=== PATIENT | male | born 1980 | race Caucasian/White ===

== ENCOUNTER 2016-09-22 23:59 | Inpatient (IN) | payer BC ==
--- NOTE | ~2016-09-22 | CN ---
Consultation Report [facility] [address] [place]. [address] NAME: DON HAJI : 84 STATUS : ADM IN PAT#: [id number] AGE: 36 ADM/REG DATE : 09/23/16 MR#: [id number] REPORT SERV DATE: 09/23/16 DICTATED BY: PRISCILA HARRISON DATE: 09/23/16 REPORT STATUS : Draft TRANSCRIBED BY: MODL DATE: 09/23/16 DATE OF CONSULTATION: 09/23/2016 REASON FOR CONSULT: Evaluation of free air found on imaging. CHIEF COMPLAINT: Shortness of breath and abdominal pain. HISTORY OF PRESENT ILLNESS: This is a 36-year-old male with a recent history of melanoma and excision by Dr. Perez, who presented to the emergency department with a two-day history of abdominal pain. The patient states this pain began rather abruptly at 11 p.m. on Tuesday evening and has gradually worsened over time. He endorses fever at home and is associated with shortness of breath and cough without any emesis. He denies any hematemesis, melena, or hematochezia. The pain is located primarily in the epigastrium and right upper quadrant. His recent medical history is significant for excision of a large melanoma on his back in May of this year with an associated right inguinal lymph node dissection, true positive for metastatic melanoma. Additionally, he underwent a liver biopsy without any evidence of metastatic disease. This was roughly one month ago and he has been in his normal state of health since that time until his pain began. On admission to the emergency department, his temperature was found to be 99.9 with a tachycardia in the 120s. White blood cell count was 10.9 and he had a lactic acidemia at 2.7. CT scan of the chest, abdomen, and pelvis was performed and this was significant for a right middle lobe and right lower lobe pneumonia as well as some free air in the anterior abdominal wall below the umbilicus. He has an associated fluid collection from his lymph node dissection. On interview in the patient's room, he does still complain of difficulty breathing, mainly associated with abdominal pain. He is mildly distressed and states the pain medicine does help with his pain. He denies any nausea or bowel movements. General Surgery was consulted for evaluation and management of this free intraperitoneal air associated with abdominal pain. REVIEW OF SYSTEMS: A 12-point review of systems was performed and is otherwise negative except as per HPI. PAST MEDICAL HISTORY: Metastatic melanoma. PAST SURGICAL HISTORY: 1. Right back melanoma excision. 2. Liver biopsy. 3. Right inguinal lymph node dissection. ALLERGIES: SHELL FISH. HOME MEDICATIONS: Reviewed. SOCIAL HISTORY: The patient denies the use of any tobacco, alcohol, or illegal drugs. FAMILY HISTORY: The patient has no family history of melanoma or any other medical Consultation Report [address] [address] NAME: DON HAJI : [birth year] STATUS : ADM IN [facility]#: [id number] AGE: 36 ADM/REG DATE : 09/23/16 MR#: [id number] REPORT SERV DATE: 09/23/16 DICTATED BY: PRISCILA HARRISON DATE: 09/23/16 REPORT STATUS : Draft TRANSCRIBED BY: CRISTHIAN DATE: 09/23/16 comorbidities that he can think of. LABORATORY STUDIES: EKG obtained showed sinus tachycardia with a heart rate of 120. He did have a mild alkalosis with a CO2 of 21. PHYSICAL EXAMINATION: VITAL SIGNS: Temperature 98.2, blood pressure 158/88, heart rate 96, respirations 18, SpO2 95% on 4 L. GENERAL APPEARANCE: Patient is in mild distress. Complains of abdominal pain. He is accompanied by his mother. He is alert and oriented x3 and appears to be his stated age, 36 years old. HEAD, EYES, EARS, NOSE, THROAT: There is no scleral icterus. Extraocular muscles are grossly intact. There is no lesion. Oropharynx and mucous membranes are pink and moist. Hearing is grossly normal. No otorrhea or rhinorrhea. NECK: Examination of the neck reveals no cervical lymphadenopathy or thyromegaly. Trachea is midline. CHEST: Breath sounds diminished on the right inferior chest and the back. No wheezes. Respirations are nonlabored. CARDIAC: Reveals a regular heart rate with mild tachycardia in the 100s and no evidence of murmur. ABDOMEN: Soft, nondistended, however, the patient is tender on palpation in all quadrants primarily in the bilateral upper quadrants. There is no rebound or guarding. No masses are palpated, though exam was limited due to pain. LYMPHATICS: Inguinal region shows a well-healing right inguinal lymph node harvest scar with drain in place and serosanguineous output. No hernias obvious. EXTREMITIES: No deformities. Full range of motion x4. No edema. NEUROLOGIC: Shows no focal deficits. PSYCHIATRIC: Appropriate mood and affect with normal speech patterns. ASSESSMENT AND PLAN: This is a 36-year-old male with recent melanoma excision, who presents with two-day history of abdominal pain and CT findings of free intraperitoneal air. At this time, I agree with management of the patient's pneumonia with n.p.o. status and broad- spectrum antibiotics. On evaluation of the CT scan, there is no clear and obvious source for the air though the patient is roughly a month away from his liver biopsy and it would be unlikely this would be the cause. There does not appear to be any associated inflammation or fluid in the pelvis that would point to a perforated diverticulum and the duodenum does appear normal, though it is difficult to determine on the noncontrast scan. There is a small fat-containing umbilical hernia. At this time, we will continue to monitor the patient's vital signs and perform serial abdominal exam as well as serial lactates. His most recent prior to this report was 2.7. Dr. Harrison has seen the patient and has discussed with Dr. Perez. If the patient's clinical condition does not improve, he may require operative intervention with exploratory laparotomy to determine the etiology of the free intraperitoneal air. The patient was seen and discussed with Dr. Harrison. DICTATED BY: Jon Leyva MD Consultation Report [address] [address] NAME: DON HAJI : 84 STATUS : ADM IN [facility]#: [id number] AGE: 36 ADM/REG DATE : 09/23/16 MR#: [id number] REPORT SERV DATE: 09/23/16 DICTATED BY: PRISCILA HARRISON DATE: 09/23/16 REPORT STATUS : Draft TRANSCRIBED BY: MODL DATE: 09/23/16 ARMAAN/CRISTHIAN Priscila Harrison MD / [id number] CC: Fuad Perez MD
--- NOTE | ~2016-09-22 | DS ---
Discharge Summary [facility] [address] [place]. [address] NAME: DON HAJI : 84 STATUS : DIS IN PAT#: [id number] AGE: 36 ADM/REG DATE : 09/23/16 MR#: [id number] REPORT SERV DATE: 10/01/16 DICTATED BY: FUAD WOODY DATE: 09/29/16 REPORT STATUS : Draft TRANSCRIBED BY: CRISTHIAN DATE: 09/29/16 ADMISSION DATE: 09/23/2016 DISCHARGE DATE: 09/29/2016 DISCHARGE DIAGNOSES: 1. Sepsis syndrome. 2. Pneumonia. 3. Right midsized cellulitis. 4. Stage IIIA melanoma. 5. Pneumoperitoneum. 6. Hepatic steatosis. 7. Transaminitis. DISCHARGE CONDITION: Stable. CONSULTATION: General Surgery, Dr. Savage Harrison. SURGICAL INTERVENTION: None. HISTORY OF PRESENT ILLNESS: For detailed HPI, please make reference to Vicente Ibarra's dictation on 09/23/2016. In brief; this is a 36-year-old male with medical history of metastatic melanoma who presented to the emergency department of [facility] with complaints of shortness of breath, fever, and abdominal pain. In the ER, he was found to have a temperature of 99.9, pulse of 127, respiratory rate of 25, saturating 93% on room air, blood pressure of 160/72. Physical examination reviewed right middle and lower lobe expiratory rhonchi and crackles, also noted on the right lower extremity is a surgical drain in the right mid thigh. Also noted is a MERLENE drain in place in the right anterior thigh and right inguinal incision that appeared clean and dry with surrounding areas of erythema from the mid thigh up to the knee. A CT scan of the abdomen was done in the ER that shows pneumonia of the right middle and lower lobe with associated small right pleural effusion as well as hepatic steatosis and a few focal of free air in the anterior abdominal region. Also noted was a 9.7 cm subcutaneous fluid collection in the right inguinal region concerning for seroma and assessment of sepsis syndrome secondary to pneumonia, questionable pneumoperitoneum, and right lower extremity cellulitis was made in the ER. The patient was admitted to the Hospitalist Service. HOSPITAL COURSE: 1. Sepsis syndrome. Blood cultures were obtained. Sputum cultures obtained. The patient was started on broad-spectrum antibiotics. The patient's white blood cell gradually trended down. Shortness of breath subsequently improved and remained afebrile throughout the course of admission. Repeat chest x-ray shows significant improvement in the aeration of the right middle and lower lobe part of the lung. The patient was able to maintain his oxygen saturation over greater than 94% on room air. Blood cultures yielded no growth. Sputum cultures showed scanty white blood cell, poor quality. The patient was transitioned from IV broad-spectrum antibiotics to p.o. antibiotics prior to discharge. The patient tolerated p.o. medication without any Discharge Summary [facility] [address] [id number] [place]. [address] NAME: DON HAJI : 84 STATUS : DIS IN PAT#: [id number] AGE: 36 ADM/REG DATE : 09/23/16 MR#: [id number] REPORT SERV DATE: 10/01/16 DICTATED BY: FUAD WOODY DATE: 09/29/16 REPORT STATUS : Draft TRANSCRIBED BY: CRISTHIAN DATE: 09/29/16 nausea or vomiting or any complication. The patient was advised to follow up with primary care physician as an outpatient. 2. Pneumoperitoneum. The patient, on presentation, had complained of abdominal pain. CT of the abdomen showed free air in the peritoneum. General Surgery was consulted, and recommended conservative management. The patient was kept n.p.o., pain control was administered. The patient's abdominal pain subsequently improved. Etiology of free air in the anterior abdominal wall per General Surgery likely related to recent instrumentation. No evidence of acute abdomen prior to discharge. The patient was advised to continue follow up with his primary surgeon as an outpatient. 3. Right lower extremity cellulitis. On presentation, the patient had a MERLENE drain in the right anterior thigh. There was surrounding areas of erythema with initiation of antibiotics. There was progressive improvement in the right lower extremity pain and erythema. During the course of this admission, the patient's MERLENE drain spontaneously fell out from his leg. The wound care team was consulted, recommended daily dressing. An attempt was made to contact the patient's primary surgeon, Dr. Brandt, to see this patient during the course of this admission; however, Dr. Brandt has no admission privileges here at [facility]. It was noted that the cellulitis around this thigh had significantly improved. Prior to discharge, an appointment was made with Dr. Brandt 24 hours after discharge to follow up for possible further management of this right lower extremity cellulitis. 4. Right inguinal seroma. CT of the abdomen on presentation showed 9.6 subcutaneous fluid collection in the inguinal region concerning for seroma. No areas of erythema, warmth, or tenderness around the inguinal region noted. The patient was advised to continue follow up with Dr. Brandt for further management of this seroma. 5. History of metastatic melanoma. The patient was advised to continue follow up with primary oncology as an outpatient. 6. Elevated right hemidiaphragm noted on chest x-ray, etiology unclear. The patient was advised to continue follow up. 7. Hepatic steatosis with elevated liver enzymes. The patient's liver enzymes were slightly elevated but remained stable throughout the course of admission. The patient had a recent biopsy at an outside hospital that confirmed the presence of hepatic steatosis. The patient was advised to continue follow up with primary care physician. DISCHARGE MEDICATIONS: 1. Levofloxacin 750 mg p.o. daily. 2. Clindamycin 450 mg p.o. b.i.d. 3. Methadone 120 mg p.o. daily. 4. Mirtazapine 15 mg p.o. at bedtime. 5. mg p.o. b.i.d. DISCHARGE CONDITION: Stable. DISCHARGE FOLLOWUP: 1. To follow up with Dr. Michael Brandt on 09/30/2016 at 2 p.m., appointment is already made prior to discharge. 2. Followup with primary oncologist as an outpatient. 3. Followup with primary care physician within one to two weeks of discharge. Discharge Summary [address] [address] NAME: DON HAJI : 84 STATUS : DIS IN PAT#: [id number] AGE: 36 ADM/REG DATE : 09/23/16 MR#: [id number] REPORT SERV DATE: 10/01/16 DICTATED BY: FUAD WOODY DATE: 09/29/16 REPORT STATUS : Draft TRANSCRIBED BY: CRISTHIAN DATE: 09/29/16 DISCHARGE ACTIVITIES: As tolerated. Greater than 35 minutes was used to prepare this patient's discharge, reconcile medication, advise the patient on discharge plans and followup. DICTATED BY: Fuad Woody MD IOO/CRISTHIAN Fuad Woody MD / [id number] CC: MD Savage Anderson MD William Korn, M.D. Robert M Graham, MD AMAR SINGH, MD
--- NOTE | ~2016-09-22 | HP ---
History And Physical [facility] [address] [facility] [place]. [address] NAME: DON HAJI : 84 STATUS : ADM IN [facility]#: [id number] AGE: 36 ADM/REG DATE : 09/23/16 MR#: [id number] REPORT SERV DATE: 09/23/16 DICTATED BY: WILMA RIVERA DATE: 09/23/16 REPORT STATUS : Draft TRANSCRIBED BY: MODL DATE: 09/23/16 DATE OF ADMISSION: 09/23/2016 POINT OF ENTRY: [facility] Emergency Department. PRIMARY CARE PHYSICIAN: None at this time. PRIMARY ONCOLOGIST: Mendoza Hoffman M.D. CHIEF COMPLAINT: Shortness of breath and abdominal pain. HISTORY OF PRESENT ILLNESS: Mr. Haji is a 36-year-old gentleman with history of metastatic melanoma, who presents to the emergency department today with reports of a two- day history of shortness of breath, fevers, as well as abdominal pain. The patient was recently diagnosed with metastatic melanoma, underwent primary excision of the right lower back region in May 2016, at that time a right inguinal lymph node also was removed which was positive for metastatic melanoma. The patient recently underwent a liver biopsy as well as right inguinal lymph node chain resection which revealed evidence of fatty liver, but no evidence of metastatic disease on the liver or remaining lymph nodes in the inguinal region. The patient states it began about two days ago, he started develop troubles breathing with shortness of breath with some cough, but denies any sputum production, also reports some fevers as high as 100.2 degrees Fahrenheit. The patient also reports some abdominal pain primarily in the right upper quadrant and right flank region. Initial evaluation in the emergency department is notable for temperature of 99.9 degrees Fahrenheit, pulse is 127. Labs are notable for a white count of 10,900. He does have some evidence of transaminitis. Lactic acid was mildly elevated at 2.7, procalcitonin was 0.32. CT scan of the chest, abdomen, and pelvis confirmed a right middle lobe and right lower lobe pneumonia with a small right pleural effusion as well as a few foci of free air in the anterior abdominal intraperitoneal region around the umbilicus of uncertain significance as well as a 9.7 cm subcutaneous fluid collection in the right inguinal region likely postoperative seroma. General Surgery, Dr. Harrison, was contacted by the ER physician, who did not have any recommendations regarding management of the concerns for possible intraperitoneal foci of free air. The patient was subsequently admitted to the Hospitalist Service for further evaluation and management. REVIEW OF SYSTEMS: Comprehensive review of systems otherwise negative unless listed in history of present illness. PREVIOUS MEDICAL HISTORY: Metastatic melanoma. SURGICAL HISTORY: History And Physical [address] [address] NAME: DON HAJI : [birth year] STATUS : ADM IN PAT#: [id number] AGE: 36 ADM/REG DATE : 09/23/16 MR#: [id number] REPORT SERV DATE: 09/23/16 DICTATED BY: WILMA RIVERA DATE: 09/23/16 REPORT STATUS : Draft TRANSCRIBED BY: CRISTHIAN DATE: 09/23/16 1. Right flank melanoma excision. 2. Liver biopsy. 3. Right inguinal lymph node chain excision. ALLERGIES: TO SHELLFISH CAUSES SWELLING. HOME MEDICATIONS: Pending at the time of my dictation. SOCIAL HISTORY: Denies any tobacco, alcohol, or illicits. FAMILY HISTORY: Otherwise healthy. No known family history of melanoma. LABS AND IMAGIN. White count 10.9, hemoglobin 13.3, hematocrit is 38.5, and platelet counts 234. 2. Sodium is 139, potassium 3.9, chloride 102, carbon dioxide 27, BUN 7, creatinine 0.83, glucose is 88, calcium is 8.9, protein is 7.9, albumin is 3.1, bilirubin is 0.6, ALT 29, AST is 88, and alkaline phosphatase is 177. 3. Procalcitonin is 0.32. Lactic acid is 2.7. 4. EKG per my review shows sinus tachycardia with a heart rate of 120, no evidence of any acute ischemia. 5. ABG; pH is 7.39, pCO2 is 35, PO2 is 60, bicarb is 21, and saturating 90% on room air. 6. CT scan of the chest, abdomen, and pelvis. This is an overnight read from virtual Radiology. Formal Radiology read will need to be followed up. Shows a pneumonia of the right middle and right lower lobe with associated small right pleural effusion as well as hepatic steatosis and a few foci of free air in the anterior abdominal region inferior to the umbilicus as well as some area of subcutaneous free air in the supraumbilical region. Also shows a 9.7 cm subcutaneous fluid collection in the right inguinal region concerning for seroma. PHYSICAL EXAMINATION: VITAL SIGNS: Temperature is 99.9 degrees Fahrenheit, pulse is 127, respirations 25, saturating 93% on room air, and blood pressure 160/72. On recheck, blood pressure now 149/96, pulse of 119. GENERAL: The patient is awake and alert. He is in some moderate distress from shortness of breath, as well as abdominal pain. He is young male. Father is at bedside. Nontoxic appearing. HEENT: Atraumatic and normocephalic. Moist mucous membranes. Pupils are equal, round, reactive to light and accommodation. Extraocular eye movements intact. No scleral icterus. NECK: No jugular venous distention. No carotid bruits. CARDIAC: Tachycardic rate, regular rhythm. No murmurs or gallops. Normal S1, S2. LUNGS: Exam is limited by shortness of breath as well as pain on inspiration, but right lower and middle lobes do have some inspiratory rhonchi and crackles. ABDOMEN: Soft. He is tender to palpation over the right upper greater than right lower quadrant. Hypoactive bowel sounds throughout, but no rebound, guarding, or rigidity. EXTREMITIES: Warm and well perfused. No cyanosis, clubbing, or edema. The patient does have a MERLENE drain in place in the right inguinal anterior thigh region. The right inguinal incision appears to be clean, dry, and intact. History And Physical [address] [address] NAME: DON HAJI : 84 STATUS : ADM IN [facility]#: [id number] AGE: 36 ADM/REG DATE : 09/23/16 MR#: [id number] REPORT SERV DATE: 09/23/16 DICTATED BY: WILMA RIVERA DATE: 09/23/16 REPORT STATUS : Draft TRANSCRIBED BY: MODEdi DATE: 09/23/16 SKIN: Warm and dry. Again, previous postoperative incisions are clean, dry, and intact. PSYCH: Affect appropriate. NEURO: Alert and oriented x3. Cranial nerves 2 through 12 grossly intact. Speech is normal. Gait not assessed. ASSESSMENT AND PLAN: Mr. Haji is a 36-year-old gentleman with history of metastatic melanoma with recent lymph node surgical excision four weeks ago, who presents with a two- day history of fevers, shortness of breath, as well as right-sided flank and abdominal pain, and found to have evidence of pneumonia as well as sepsis. PROBLEM LIST: 1. Right middle lobe and right lower lobe pneumonia. 2. Sepsis. 3. Hypoxemia. 4. Intraperitoneal free air concerning for possible pneumoperitoneum. 5. Transaminitis. 6. History of metastatic melanoma. PLAN: 1. Right middle lobe and right lower lobe pneumonia. Given evidence of sepsis as well as recent hospitalization at [facility] for inguinal lymph node excision and liver biopsy we will empirically place the patient on broad-spectrum antibiotics of IV vancomycin and cefepime. Follow up blood cultures, sputum cultures, and wean antibiotics as tolerated. Provide supportive care with aggressive pulmonary toilet with DuoNeb, incentive spirometry, flutter valve, and mucolytics. 2. Sepsis. The patient meets criteria with tachypnea, tachycardia, mild leukocytosis as well as reports of fevers at home. Lactic acid is within normal limits, mildly elevated at 2.7, we will check a repeat after three hours. Procalcitonin is negative. Follow up blood cultures. Providing broad-spectrum antibiotics as well as IV fluid hydration. 3. Hypoxemia, pulmonary toilet with flutter valve, and incentive spirometry to mobilize secretions, wean as tolerated. 4. Concern for possible pneumoperitoneum with intraperitoneal free air. We will need to follow up on formal Radiology report of CT of the chest, abdomen, and pelvis. Followup Surgical consultation in the morning. Again Dr. Harrison was contacted by ER staff here and will see the patient in the morning. In the meantime, we will keep the patient nothing by mouth. Keep the patient on IV antibiotics. 5. Transaminitis likely secondary to fatty liver as documented on CT scan of abdomen and pelvis. We will continue to monitor. 6. Metastatic melanoma. Per Oncology, we will try to obtain records from Dr. Hoffman's office at [facility]. 7. DVT prophylaxis. Lovenox subcutaneous. CODE STATUS: The patient wished to be full code. History And Physical [address] [address] NAME: DON HAJI : 84 STATUS : ADM IN [facility]#: [id number] AGE: 36 ADM/REG DATE : 09/23/16 MR#: [id number] REPORT SERV DATE: 09/23/16 DICTATED BY: WILMA RIVERA DATE: 09/23/16 REPORT STATUS : Draft TRANSCRIBED BY: CRISTHIAN DATE: 09/23/16 ELAINA/CRISTHIAN Wilma Rivera MD / [id number] CC: Viet Srivastava Jr, MD Robert M Graham, MD
[2016-09-23 00:54] LABS: BASOPHILS 0.2 %; BASOPHILS ABSOLUTE 0.02 10/3/uL (0.0-0.16); EOSINOPHILS 0.6 %; EOSINOPHILS ABSOLUTE 0.06 10/3/uL (0.0-0.53); HEMATOCRIT 38.5 % (40.0-51.0); HEMOGLOBIN 13.3 g/dL (13.6-17.8); IMMATURE GRANULOCYTES 0.6 %; IMMATURE GRANULOCYTES ABSOLUTE 0.07 10/3/uL (0.0-0.11); LYMPHOCYTES ABSOLUTE 1.95 10/3/uL (0.67-4.30); MEAN CORPUS HGB CONC 34.5 g/dL (32.0-36.0); MEAN CORPUSCULAR HEMOGLOB 32.4 pg (26.0-34.0); MEAN CORPUSCULAR VOLUME 93.7 fL (80-100); MEAN PLATELET VOLUME 10.1 fL (9.2-13.0); MONOCYTES 14.2 %; MONOCYTES ABSOLUTE 1.54 10/3/uL (0.21-1.20); NEUTROPHILS 66.4 %; NEUTROPHILS ABSOLUTE 7.21 10/3/uL (2.02-8.40); PLATELET COUNT 234 10/3/uL (150-400); RBC DISTRIBUTION WIDTH 12.6 % (12.0-16.0); RED CELL COUNT 4.11 10/6/uL (4.7-6.1); WHITE BLOOD CELLS 10.9 10/3/uL (4.5-10.5)
[2016-09-23 00:59] LABS: MANUAL DIFF NO %
[2016-09-23 01:10] LABS: A/G RATIO 0.6 (0.7-1.9); ALBUMIN 3.1 G/DL (3.5-5.0); ALKALINE PHOSPHATASE 177 U/L (45-117); BUN (BLOOD UREA NITROGEN) 7 MG/DL (6-23); CALCIUM, SERUM 8.9 MG/DL (8.5-10.4); CHLORIDE, SERUM 102 MMOL/L (96-112); CO2 (CARBON DIOXIDE) 27 MMOL/L (24-34); CREATININE 0.83 MG/DL (0.70-1.30); GFR AFRICAN AMERICAN 133 ML/MIN (>=60); GFR NON AFRICAN AMERICAN 115 ML/MIN (>=60); GLOBULIN 4.8 G/DL (2.5-4.1); GLUCOSE, SERUM 88 MG/DL (60-99); POTASSIUM, SERUM 3.9 MMOL/L (3.5-5.3); SGOT(AST) 88 U/L (5-40); SGPT(ALT) 169 U/L (5-65); SODIUM, SERUM 139 MMOL/L (135-148); TOTAL BILIRUBIN 0.6 MG/DL (0-1.2); TOTAL PROTEIN 7.9 G/DL (6.0-8.5)
[2016-09-23 01:13] LABS: LACTATE 2.7 MMOL/L (0.3-2.4)
[2016-09-23 01:40] LABS: PROCALCITONIN 0.32 ng/mL (<0.5)
[2016-09-23 01:51] LABS: ALLENS TEST Pos; BE (BASE EXCESS) -3.6 MEQ/L (0 +/- 2.5); CARBOXYHEMOGLOBIN 1.6 % (0-3); HCO3 (ACTUAL BICARBONATE) 20.7 MEQ/L (23-27); HEMOBLOGIN CONTENT 12.9 G/DL (14-18); INSTRUMENT SERIAL # 8087; METHEMOGLOBIN 0.2 % (0-3); OPERATOR ID 33449; PCO2 (CO2 TENSION) 35 MMHG (35-45); PO2 (O2 TENSION) 60 MMHG (79-93); SAMPLE Arterial; pH 7.39 (7.37-7.43)
[2016-09-23] MEDS ORDERED: URSO FORTE500 MG PO (03:01)
[2016-09-23] MEDS ORDERED: REM15 PO (03:02)
[2016-09-23] MEDS ORDERED: METHADONE 120 MG PO (03:03)
[2016-09-23 04:27] LABS: ASCORBIC ACID (UR NOT ORDER) NEG (NEG); BILIRUBIN, URINE NEGATIVE (NEG); ER URINALYSIS TAT 0 Hrs 00 Mins; KETONE, URINE TRACE MG/DL (NEG); LEUKOCYTE ESTERASE(NOT OR NEG (NEG); NITRITE (URINE) NEG (NEG); WBC (NOT ORDERED) (RFLEX) 1 (0-5)
[2016-09-23 09:29] LABS: FREE T4 1.07 NG/DL (0.76-1.46); ULTRASENSITIVE TSH 1.28 MCIU/ML (0.358-3.740)
[2016-09-23] MEDS ORDERED: DOLOPHINE10 MG PO (09:38)
[2016-09-23 12:04] LABS: BUN (BLOOD UREA NITROGEN) 8 MG/DL (6-23); CALCIUM, SERUM 7.9 MG/DL (8.5-10.4); CHLORIDE, SERUM 107 MMOL/L (96-112); CO2 (CARBON DIOXIDE) 26 MMOL/L (24-34); CPK 84 U/L (0-200); CREATININE 0.74 MG/DL (0.70-1.30); GFR AFRICAN AMERICAN 139 ML/MIN (>=60); GFR NON AFRICAN AMERICAN 120 ML/MIN (>=60); GLUCOSE, SERUM 122 MG/DL (60-99); POTASSIUM, SERUM 4.5 MMOL/L (3.5-5.3); SODIUM, SERUM 142 MMOL/L (135-148)
[2016-09-23 12:18] LABS: ASCORBIC ACID (UR NOT ORDER) NEG (NEG); BILIRUBIN, URINE NEGATIVE (NEG); KETONE, URINE NEGATIVE (NEG); LEUKOCYTE ESTERASE(NOT OR NEG (NEG); WBC (NOT ORDERED) (RFLEX) 1 (0-5)
[2016-09-23 13:56] LABS: BASOPHILS 0.1 %; BASOPHILS ABSOLUTE 0.01 10/3/uL (0.0-0.16); EOSINOPHILS 0.1 %; EOSINOPHILS ABSOLUTE 0.01 10/3/uL (0.0-0.53); HEMATOCRIT 31.9 % (40.0-51.0); HEMOGLOBIN 10.8 g/dL (13.6-17.8); IMMATURE GRANULOCYTES 0.8 %; IMMATURE GRANULOCYTES ABSOLUTE 0.07 10/3/uL (0.0-0.11); LYMPHOCYTES 11.7 %; LYMPHOCYTES ABSOLUTE 1.08 10/3/uL (0.67-4.30); MANUAL DIFF NO %; MEAN CORPUS HGB CONC 33.9 g/dL (32.0-36.0); MEAN CORPUSCULAR HEMOGLOB 31.8 pg (26.0-34.0); MEAN CORPUSCULAR VOLUME 93.8 fL (80-100); MEAN PLATELET VOLUME 10.3 fL (9.2-13.0); MONOCYTES 12.2 %; MONOCYTES ABSOLUTE 1.13 10/3/uL (0.21-1.20); NEUTROPHILS 75.1 %; NEUTROPHILS ABSOLUTE 6.96 10/3/uL (2.02-8.40); PLATELET COUNT 225 10/3/uL (150-400); RBC DISTRIBUTION WIDTH 13.1 % (12.0-16.0); WHITE BLOOD CELLS 9.3 10/3/uL (4.5-10.5)
[2016-09-23 14:49] LABS: PROCALCITONIN 0.38 ng/mL (<0.5)
[2016-09-24 09:07] LABS: BASOPHILS 0.1 %; BASOPHILS ABSOLUTE 0.01 10/3/uL (0.0-0.16); EOSINOPHILS 0.8 %; EOSINOPHILS ABSOLUTE 0.06 10/3/uL (0.0-0.53); HEMOGLOBIN 12.7 g/dL (13.6-17.8); IMMATURE GRANULOCYTES 0.4 %; IMMATURE GRANULOCYTES ABSOLUTE 0.03 10/3/uL (0.0-0.11); LYMPHOCYTES 14.1 %; MEAN CORPUS HGB CONC 33.4 g/dL (32.0-36.0); MEAN CORPUSCULAR HEMOGLOB 31.6 pg (26.0-34.0); MEAN CORPUSCULAR VOLUME 94.5 fL (80-100); MEAN PLATELET VOLUME 9.5 fL (9.2-13.0); MONOCYTES 10.8 %; MONOCYTES ABSOLUTE 0.77 10/3/uL (0.21-1.20); NEUTROPHILS 73.8 %; NEUTROPHILS ABSOLUTE 5.23 10/3/uL (2.02-8.40); PLATELET COUNT 213 10/3/uL (150-400); RBC DISTRIBUTION WIDTH 13.1 % (12.0-16.0); RED CELL COUNT 4.02 10/6/uL (4.7-6.1); WHITE BLOOD CELLS 7.1 10/3/uL (4.5-10.5)
[2016-09-24 09:10] LABS: MANUAL DIFF NO %
[2016-09-24 09:14] LABS: INTERNATIONAL NORMAL RATI 1.2 UNITS (-); PARTIAL THROMBO TIME 26.1 SEC (22.5-37.2); PROTIME (NOT ORD) 14.9 SEC (12.0-14.5)
[2016-09-24 09:22] LABS: BUN (BLOOD UREA NITROGEN) 8 MG/DL (6-23); CHLORIDE, SERUM 105 MMOL/L (96-112); CO2 (CARBON DIOXIDE) 30 MMOL/L (24-34); GFR AFRICAN AMERICAN 143 ML/MIN (>=60); GFR NON AFRICAN AMERICAN 123 ML/MIN (>=60); POTASSIUM, SERUM 3.8 MMOL/L (3.5-5.3); SODIUM, SERUM 141 MMOL/L (135-148)
[2016-09-24 09:23] LABS: CALCIUM, SERUM 9.2 MG/DL (8.5-10.4); GLUCOSE, SERUM 92 MG/DL (60-99)
[2016-09-25 07:48] LABS: BASOPHILS 0.2 %; BASOPHILS ABSOLUTE 0.01 10/3/uL (0.0-0.16); EOSINOPHILS 2.1 %; EOSINOPHILS ABSOLUTE 0.12 10/3/uL (0.0-0.53); HEMOGLOBIN 11.2 g/dL (13.6-17.8); IMMATURE GRANULOCYTES 0.9 %; IMMATURE GRANULOCYTES ABSOLUTE 0.05 10/3/uL (0.0-0.11); LYMPHOCYTES 15.4 %; LYMPHOCYTES ABSOLUTE 0.88 10/3/uL (0.67-4.30); MEAN CORPUS HGB CONC 33.3 g/dL (32.0-36.0); MEAN CORPUSCULAR HEMOGLOB 31.6 pg (26.0-34.0); MEAN CORPUSCULAR VOLUME 94.9 fL (80-100); MEAN PLATELET VOLUME 9.7 fL (9.2-13.0); MONOCYTES 14.7 %; MONOCYTES ABSOLUTE 0.84 10/3/uL (0.21-1.20); NEUTROPHILS 66.7 %; NEUTROPHILS ABSOLUTE 3.82 10/3/uL (2.02-8.40); PLATELET COUNT 224 10/3/uL (150-400); RBC DISTRIBUTION WIDTH 12.8 % (12.0-16.0); RED CELL COUNT 3.54 10/6/uL (4.7-6.1); WHITE BLOOD CELLS 5.7 10/3/uL (4.5-10.5)
[2016-09-25 07:52] LABS: HEMATOCRIT 33.6 % (40.0-51.0); MANUAL DIFF NO %
[2016-09-25 08:06] LABS: ALBUMIN 2.5 G/DL (3.5-5.0); BUN (BLOOD UREA NITROGEN) 7 MG/DL (6-23); CALCIUM, SERUM 8.9 MG/DL (8.5-10.4); CHLORIDE, SERUM 105 MMOL/L (96-112); CO2 (CARBON DIOXIDE) 27 MMOL/L (24-34); CREATININE 0.54 MG/DL (0.70-1.30); GFR AFRICAN AMERICAN 159 ML/MIN (>=60); GFR NON AFRICAN AMERICAN 137 ML/MIN (>=60); GLUCOSE, SERUM 88 MG/DL (60-99); PHOSPHORUS, SERUM 3.6 MG/DL (2.5-4.5); POTASSIUM, SERUM 3.8 MMOL/L (3.5-5.3); SODIUM, SERUM 141 MMOL/L (135-148)
[2016-09-26 07:14] LABS: BASOPHILS 0.3 %; BASOPHILS ABSOLUTE 0.02 10/3/uL (0.0-0.16); EOSINOPHILS 2.7 %; EOSINOPHILS ABSOLUTE 0.17 10/3/uL (0.0-0.53); HEMATOCRIT 35.5 % (40.0-51.0); HEMOGLOBIN 12.2 g/dL (13.6-17.8); IMMATURE GRANULOCYTES 1.7 %; IMMATURE GRANULOCYTES ABSOLUTE 0.11 10/3/uL (0.0-0.11); LYMPHOCYTES 17.5 %; LYMPHOCYTES ABSOLUTE 1.11 10/3/uL (0.67-4.30); MEAN CORPUS HGB CONC 34.4 g/dL (32.0-36.0); MEAN CORPUSCULAR HEMOGLOB 31.7 pg (26.0-34.0); MEAN CORPUSCULAR VOLUME 92.2 fL (80-100); MEAN PLATELET VOLUME 9.5 fL (9.2-13.0); MONOCYTES 14.7 %; MONOCYTES ABSOLUTE 0.93 10/3/uL (0.21-1.20); NEUTROPHILS 63.1 %; NEUTROPHILS ABSOLUTE 3.99 10/3/uL (2.02-8.40); PLATELET COUNT 214 10/3/uL (150-400); RED CELL COUNT 3.85 10/6/uL (4.7-6.1); WHITE BLOOD CELLS 6.3 10/3/uL (4.5-10.5)
[2016-09-26 07:16] LABS: MANUAL DIFF NO %
[2016-09-26 07:26] LABS: BUN (BLOOD UREA NITROGEN) 8 MG/DL (6-23); CALCIUM, SERUM 8.7 MG/DL (8.5-10.4); CHLORIDE, SERUM 107 MMOL/L (96-112); CO2 (CARBON DIOXIDE) 29 MMOL/L (24-34); CREATININE 0.61 MG/DL (0.70-1.30); GFR AFRICAN AMERICAN 151 ML/MIN (>=60); GFR NON AFRICAN AMERICAN 130 ML/MIN (>=60); GLUCOSE, SERUM 88 MG/DL (60-99); PHOSPHORUS, SERUM 3.6 MG/DL (2.5-4.5); POTASSIUM, SERUM 3.9 MMOL/L (3.5-5.3); SODIUM, SERUM 140 MMOL/L (135-148)
[2016-09-26 15:12] LABS: ALKALINE PHOSPHATASE 122 U/L (45-117); DIRECT BILIRUBIN 0.1 MG/DL (0.0-0.4); SGOT(AST) 41 U/L (5-40); SGPT(ALT) 84 U/L (5-65)
[2016-09-26 15:23] LABS: ALBUMIN 2.7 G/DL (3.5-5.0); INDIRECT BILIRUBIN(NOT ORDER) 0.3 MG/DL (0.1-0.9); TOTAL BILIRUBIN 0.4 MG/DL (0-1.2); TOTAL PROTEIN 6.7 G/DL (6.0-8.5)
[2016-09-27 07:19] LABS: BASOPHILS 0.4 %; BASOPHILS ABSOLUTE 0.03 10/3/uL (0.0-0.16); EOSINOPHILS 2.2 %; EOSINOPHILS ABSOLUTE 0.18 10/3/uL (0.0-0.53); HEMATOCRIT 35.6 % (40.0-51.0); HEMOGLOBIN 12.1 g/dL (13.6-17.8); IMMATURE GRANULOCYTES 3.1 %; IMMATURE GRANULOCYTES ABSOLUTE 0.25 10/3/uL (0.0-0.11); LYMPHOCYTES 16.3 %; LYMPHOCYTES ABSOLUTE 1.31 10/3/uL (0.67-4.30); MANUAL DIFF NO %; MEAN CORPUSCULAR HEMOGLOB 31.5 pg (26.0-34.0); MEAN CORPUSCULAR VOLUME 92.7 fL (80-100); MEAN PLATELET VOLUME 9.5 fL (9.2-13.0); MONOCYTES 10.8 %; MONOCYTES ABSOLUTE 0.87 10/3/uL (0.21-1.20); NEUTROPHILS 67.2 %; NEUTROPHILS ABSOLUTE 5.41 10/3/uL (2.02-8.40); PLATELET COUNT 271 10/3/uL (150-400); RBC DISTRIBUTION WIDTH 12.7 % (12.0-16.0); RED CELL COUNT 3.84 10/6/uL (4.7-6.1); WHITE BLOOD CELLS 8.1 10/3/uL (4.5-10.5)
[2016-09-27 07:34] LABS: BUN (BLOOD UREA NITROGEN) 10 MG/DL (6-23); CHLORIDE, SERUM 111 MMOL/L (96-112); CO2 (CARBON DIOXIDE) 26 MMOL/L (24-34); CREATININE 0.63 MG/DL (0.70-1.30); GFR AFRICAN AMERICAN 149 ML/MIN (>=60); GFR NON AFRICAN AMERICAN 129 ML/MIN (>=60); GLUCOSE, SERUM 98 MG/DL (60-99); PHOSPHORUS, SERUM 2.8 MG/DL (2.5-4.5); POTASSIUM, SERUM 3.6 MMOL/L (3.5-5.3); SODIUM, SERUM 134 MMOL/L (135-148)
[2016-09-28 06:00] LABS: BUN (BLOOD UREA NITROGEN) 11 MG/DL (6-23); CALCIUM, SERUM 8.4 MG/DL (8.5-10.4); CHLORIDE, SERUM 108 MMOL/L (96-112); CO2 (CARBON DIOXIDE) 22 MMOL/L (24-34); CREATININE 0.64 MG/DL (0.70-1.30); GFR AFRICAN AMERICAN 148 ML/MIN (>=60); GFR NON AFRICAN AMERICAN 128 ML/MIN (>=60); PHOSPHORUS, SERUM 2.9 MG/DL (2.5-4.5); SODIUM, SERUM 140 MMOL/L (135-148)
[2016-09-28 06:02] LABS: GLUCOSE, SERUM 131 MG/DL (60-99); POTASSIUM, SERUM 3.8 MMOL/L (3.5-5.3)
[2016-09-28 06:27] LABS: HEMATOCRIT 37.4 % (40.0-51.0); HEMOGLOBIN 12.6 g/dL (13.6-17.8); MEAN CORPUS HGB CONC 33.7 g/dL (32.0-36.0); MEAN CORPUSCULAR HEMOGLOB 31.3 pg (26.0-34.0); MEAN CORPUSCULAR VOLUME 92.8 fL (80-100); MEAN PLATELET VOLUME 9.9 fL (9.2-13.0); PLATELET COUNT 240 10/3/uL (150-400); RBC DISTRIBUTION WIDTH 12.9 % (12.0-16.0); RED CELL COUNT 4.03 10/6/uL (4.7-6.1); WHITE BLOOD CELLS 6.8 10/3/uL (4.5-10.5)
[2016-09-28 06:29] LABS: MANUAL DIFF YES %
[2016-09-28 06:55] LABS: BAND NEUTROPHILS 3 %; EOSINOPHILS 4 %; EOSINOPHILS ABSOLUTE (CALC) 0.27 10/3/uL (0.0-0.53); IMMATURE GRANS ABSOLUTE (CALC) 0.27 10/3/uL (0.0-0.11); LYMPHOCYTES 20 %; LYMPHOCYTES ABSOLUTE (CALC) 1.36 10/3/uL (0.67-4.30); METAMYELOCYTES 3 %; MONOCYTES 8 %; MONOCYTES ABSOLUTE (CALC) 0.54 10/3/uL (0.21-1.20); MYELOCYTES 1 %; NEUTROPHILS ABSOLUTE (CALC) 4.35 10/3/uL (2.02-8.40); PLATELET ESTIMATE ADQ (ADEQUATE); SEGMENTED NEUTROPHIL (0) 61 %; TOTAL NUCLEATED CELLS 100
[2016-09-28 06:56] LABS: RBC MORPHOLOGY NORM (NORMAL)
[2016-09-28 10:20] LABS: HEPATITIS B SURFACE ANTIGEN NON-REACTIVE (NON-REACT)
[2016-09-28 10:43] LABS: HEP A ANTIBODY IGM NON-REACTIVE (NON-REACT)
[2016-09-29 05:53] LABS: BASOPHILS 0.4 %; BASOPHILS ABSOLUTE 0.03 10/3/uL (0.0-0.16); EOSINOPHILS 3.9 %; EOSINOPHILS ABSOLUTE 0.28 10/3/uL (0.0-0.53); HEMATOCRIT 37.7 % (40.0-51.0); IMMATURE GRANULOCYTES 4.5 %; IMMATURE GRANULOCYTES ABSOLUTE 0.32 10/3/uL (0.0-0.11); LYMPHOCYTES 17.9 %; LYMPHOCYTES ABSOLUTE 1.28 10/3/uL (0.67-4.30); MEAN CORPUS HGB CONC 34.5 g/dL (32.0-36.0); MEAN CORPUSCULAR HEMOGLOB 31.6 pg (26.0-34.0); MEAN CORPUSCULAR VOLUME 91.7 fL (80-100); MEAN PLATELET VOLUME 9.8 fL (9.2-13.0); MONOCYTES ABSOLUTE 0.93 10/3/uL (0.21-1.20); NEUTROPHILS 60.3 %; PLATELET COUNT 270 10/3/uL (150-400); RBC DISTRIBUTION WIDTH 12.4 % (12.0-16.0); RED CELL COUNT 4.11 10/6/uL (4.7-6.1); WHITE BLOOD CELLS 7.1 10/3/uL (4.5-10.5)
[2016-09-29 05:54] LABS: MANUAL DIFF NO %
[2016-09-29 06:09] LABS: BUN (BLOOD UREA NITROGEN) 10 MG/DL (6-23); CALCIUM, SERUM 8.5 MG/DL (8.5-10.4); CHLORIDE, SERUM 106 MMOL/L (96-112); CO2 (CARBON DIOXIDE) 24 MMOL/L (24-34); CREATININE 0.61 MG/DL (0.70-1.30); GFR AFRICAN AMERICAN 151 ML/MIN (>=60); GFR NON AFRICAN AMERICAN 130 ML/MIN (>=60); GLUCOSE, SERUM 98 MG/DL (60-99); PHOSPHORUS, SERUM 3.1 MG/DL (2.5-4.5); POTASSIUM, SERUM 3.4 MMOL/L (3.5-5.3); SODIUM, SERUM 139 MMOL/L (135-148)
[2016-09-29 07:54] LABS: HEPATITIS B CORE AB IGM NON-REACTIVE (NON-REAC); HEPATITIS C ANTIBODY NON-REACTIVE (NON-REACT)
[2016-09-29] MEDS ORDERED: LEVAQUIN750 MG PO (08:52)
[2016-09-29] MEDS ORDERED: CLINDA150 PO (08:53)
== END 2016-09-29 11:21 | disposition home or self-care (01) | DRG 871 ==
LOC: ER 23:59 → 5NO 09-23 04:04
PROVIDERS: Emergency Medicine; Hospitalist; Internal Medicine; Internal Medicine Pulmonary Disease; Surgery
DX: A41.9 Sepsis, unspecified organism (principal); J18.9 Pneumonia, unspecified organism; C43.59 Malignant melanoma of other part of trunk; C77.4 Secondary and unspecified malignant neoplasm of inguinal and lower limb lymph nodes; L03.115 Cellulitis of right lower limb; K76.0 Fatty (change of) liver, not elsewhere classified
CPT/HCPCS: 36600; 71010; 71020; 71250; 73701-RT; 74000; 74176; 74177; 80048; 80053; 80069; 80074; 80076; 80202; 81001; 82550; 82805; 83605; 83735; 83880; 84100; 84145; 84439; 84443; 85025; 85610; 85730; 87040; 87449; 93005; 93975; 94640; 94644; 96365; 96375; 96376; 97110-GP; 97116-GP; 97161-GP; 99291; A9270-GY; J0456; J0692; J1170; J2405; J3370; Q9967